=== PATIENT | male | born 1980 | race Caucasian/White ===

== ENCOUNTER 2016-09-15 17:20 | Emergency (ER) | payer OTHER ==
[~2016-09-15] VITALS: Ht 172.7 cm; Wt 86.2 kg
== END 2016-09-15 18:46 | disposition home or self-care (01) ==
LOC: ED 17:20
DX: S63.653A Sprain of metacarpophalangeal joint of left middle finger, initial encounter (principal); F17.200 Nicotine dependence, unspecified, uncomplicated; X58.XXXA Exposure to other specified factors, initial encounter; Y93.89 Activity, other specified; Y92.89 Other specified places as the place of occurrence of the external cause; Y99.8 Other external cause status